=== PATIENT | female | born 1995 | race Two or more races ===

== ENCOUNTER 2025-02-09 11:53 | Outpatient (OUT) | payer OTHER, SELFPAY ==
--- OUTSIDE RECORDS SUMMARY | 2025-01-26 23:59 | XMS_ITS | Continuity of Care Document ---
Author Organization [facility] Address Unknown Care Team Providers Care Clinic Receptionist Name Role Phone Bozena Harvey Primary Care Physician Encounter [facility] [id number] Date(s): 01/26/25 - 01/26/[address] [address] Discharge Disposition: Home (Routine DC) Attending Physician: Dina Gagnon MD Admitting Physician: Dina Gagnon MD Referring Physician: Dina Gagnon MD Encounter Type: Outpatient Assessment and Plan Future Scheduled Tests Radiology* CT Maxillofacial w/o Contrast 01/26/25 Medications mupirocin Top 2% Oint 1 chandrika, Topical, TID, 15 gram, Refill(s) 0, [facility], 173, cm, 11/29/24 9:20:00 EDT, Height/Length Dosing, 61.3, kg, 11/29/24 9:20:00 EDT, Weight Dosing Start Date: 11/29/24 Status: Ordered Quantity: 15.0 Unit: g Repeat number: 1 Indications: Other specified disorders of nose and nasal sinuses; Other specified health status; Body mass index [BMI] 20.0-20.9, adult; Problem List Condition Confirmation Course Effective Dates Status Health St atus Informant BMI 20.0-20.9, adult Confirmed Active BMI < 18.5 Confirmed Active Nasal mass Confirmed Active Nonsmoker Confirmed Active Nostril sore Confirmed Active Procedures Procedure Date Related Diagnosis Body Site 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 Completed Jaw 2014 Completed Social History Social History Type Response Smoking Status Never (less than 100 in lifetime);Never; Concerns about tobacco use in household: No; Smoking Cessation Yes entered on: 01/12/25 Sex Female Sex Representation Female (finding) Patient Care team information Care Team Personnel Name: Bozena Bull Position: FT Ambulatory - Primary Care - CHANDRIKA Member Role: Primary Care Physician Address: [address] [place] [address]- Telecom: Care Team Related Persons Name: RAN TIJERINA Name: RAN TIJERINA Name: RAN TIJERINA Name: RAN TIJERINA Insurance Providers Guarantor name: Health Plan Information #: 1 Payer: NA Payer Identifier: [id number] Member Number: [id number] Group Number: [id number] Subscriber Identifier: [id number] Relationship to Subscriber: spouse Coverage Type: PRIVATE HEALTH INSURANCE Coverage Verification Date: 25 Telecom: NA Address:
--- OUTSIDE RECORDS SUMMARY | 2025-02-05 11:20 | XMS_ITS | Encounter Summary ---
Author Organization [facility] Address [address] [place] [address] Care Team Providers Care Industrial Engineering Technologist Name Role Phone Bozena Harvey NP Unavailable Sivakumar Fuller MD Primary Care Provider [phone] Reason for Visit * Reason Comments Nasal Mass Follow up [facility] Encounter Details Date Type Department Care Team (Late st Contact Info) Description 02/05/2025 11:20 AM EDT Office Visit [facility] [address] [facility] [address] [place] [address] Dina Gagnon MD 112 [facility] 130 [place] [address] Nasal mass (Primary Dx); Cystic lesion of [...] presents for Nasal Mass (Follow up CT [facility] 01/26/25) CT shows a 1.9x1.5x0.7cm RT ant [...] virus) Past Surgical History: Procedure Laterality Date [place] TMJ ARTHROSCOPY/SURGERY 2014 VAGINAL DELIVERY 05/13/2023 No Known Allergies Current Outpatient Medications on File Prior to Visit Medication Sig Dispense Refill Latqqwof-Gpl-Gm-FA ( 1 + IRON PO) [DISCONTINUED] amoxicillin-clavulanate [...] [facility] [address] [facility] [address] [place] [address] Dina Gagnon MD [address] [place] [address] documented as of this encounter Visit Diagnoses Diagnosis Nasal mass- Primary Cystic lesion of maxilla determined by X-ray documented in this encounter Care Teams Industrial Engineering Technologist Relationship Specialty Start Date End Date Sivakumar Fuller MD [address] [place] [address] PCP - General Family Medicine 01/05/25 Bozena Harvey NP [address] [place] [address] [phone] Referring Physician Family Medicine 01/05/25 documented as of this encounter
--- OUTSIDE RECORDS SUMMARY | 2025-02-08 11:15 | XMS_ITS | Encounter Summary ---
Author Organization [facility] Address [address] [place] [address] Care Team Providers Care Pipeline Executive Name Role Phone Bozena Harvey NP Unavailable Sivakumar Fuller MD Primary Care Provider [phone] Reason for Visit * Reason Comments Care [...] EDT Visit [facility] [address] [facility] [address] [place] [address] Shauna Nunez, [address] [facility] [address] [place] [address] care and examination ([facility]) Social History Tobacco Use Types Packs/Day [...] Review Audit Reviewed by No Workman MA (Installer Helper) on 02/08/25 at 1117 Medication Order Taking? Sig Documenting Provider Last Dose Status Discontinued 02/05/25 1112 Jfkzcqqp-Zxl-Ll-FA ( 1 + IRON PO) [id number] Historical Provider, Active Discontinued 02/05/25 1112 Past [...] orders for this visit: care and examination ([facility]) Breast and pelvic exam performed. Patient [...] as needed. ICD-10-CM 1. care and examination ([facility]) Z39.2 documented in this encounter Plan of Treatment Upcoming Encounters Date Type Department Care Team (Late st Contact Info) Description 02/27/2025 2:30 PM EDT Office Visit [facility] [address] [facility] [address] [place] [address] Dina Gagnon MD [address] [facility] 130 [place] [address] documented as of this encounter Visit Diagnoses Diagnosis care and examination ([facility]) documented in this encounter Care Teams Pipeline Executive Relationship Specialty Start Date End Date Sivakumar Fulelr MD [address] [place] [address] PCP - General Family Medicine 01/05/25 Bozena Harvey NP [address] [place] [address] Referring Physician Family Medicine 01/05/25 documented as of this encounter
--- OUTSIDE RECORDS SUMMARY | 2025-02-09 12:01 | XMS_ITS | Encounter Summary ---
Author Organization [facility] Address [address] [place] [address] Care Team Providers Care Outdoor Guide Name Role Phone Bozena Harvey NP Unavailable Sivakumar Fuller MD Primary Care Provider [phone] Encounter Details Date Type Department Care Team (Late Contact Info) Description 01/26/2025 Clinisync Result Encounter [facility] External Department Unsolicited Dina Gagnon MD 112 [facility] 130 [place], [place] [id number] Social History Tobacco Use Types Packs/Day Years [...] on file documented as of this encounter Plan of Treatment Upcoming Encounters Date Type Department Care Team (Late st Contact Info) Description 02/27/2025 2:30 PM EDT Office Visit [facility] 112 [facility] 130 [place] [address] Dina Gagnon MD 112 [facility] 130 [place], [place] [phone] documented as of this encounter Procedures Procedure Name Priority Date/Time Associated Diagnosis Comments CT MAXILLOFACIAL W/ CONTRAST 01/26/2025 4:54 PM EDT documented in this encounter Results * CT MAXILLOFACIAL W/ CONTRAST (01/26/2025 4:54 PM EDT) Anatomical Region Laterality Modality Other 01/26/2025 4:54 PM EDT Narrative 01/30/2025 11:06 AM EDT Exam Date/Time: 01/26/2025 17:23 EDT Reason for Exam: J34.89 Other specified disorders of nose and nasal sinuses Report IMPRESSION: 0.7 X 1.5 X 1.9 [address]ES MASS. CT MAXILLOFACIAL WITHOUT INTRAVENOUS CONTRAST MEDIUM. HISTORY: GROWTH ON RIGHT SIDE INSIDE NOSE, DOESN'T HURT TO TOUCH, CANT BREATHE OUT OF THE RT SIDE AT ALL,. TECHNICAL FACTORS: CT maxillofacial was obtained and formatted as 2 mm contiguous axial images. Sagittal and coronal reconstruction obtained during postprocessing. Comparison: . Findings: Bilateral frontal, ethmoid, sphenoid, and maxillary sinuses patent. Nasal septum midline. Ostiomeatal complexes patent bilaterally. Imaged portions mastoid air cells well pneumatized. Bilateral ocular globes, extraocular muscles, optic nerves, retrobulbar fat without anomaly. No fractures. No osteoblastic and no osteolytic lesions. Partially calcified 0.7 x 1. 5 x 1.9 cm mass visualized, right nares (series 3, image 39, series 5, image 97, series 7, image 42). All CT scans at this facility use dose modulation, iterative reconstruction, and/or weight based dosing when appropriate to reduce radiation dose to as low as reasonably achievable. Technical Comments: GFR (mL/min/1/73m2) na Contrast: Isovue 300 Contrast amount in ml's: 100.00 Report Ordering Provider: Dina Gagnon FINAL REPORT Dictated: 01/30/2025 11:03 am Bird Bergman MD Signed (Electronic Signature): 01/30/2025 11:03 am Signed by: Bird Bergman MD Transcribed by: TYLOR Technologist: MARTY Procedure Note Radiology, Radiologist, - 01/30/2025 Exam Date/Time: 01/26/2025 17:23 EDT Reason for Exam: J34.89 Other specified disorders of nose and nasal sinuses Report IMPRESSION: 0.7 X 1.5 X 1.9 [address]ES MASS. CT MAXILLOFACIAL WITHOUT INTRAVENOUS CONTRAST MEDIUM. HISTORY: GROWTH ON RIGHT SIDE INSIDE NOSE, DOESN'T HURT TO TOUCH, CANTBREATHE OUT OF THE RT SIDE AT ALL,. TECHNICAL FACTORS: CT maxillofacial was obtained and formatted as 2 mmcontiguous axial images. Sagittal and coronal reconstruction obtained duringpostprocessing. Comparison: . Findings: Bilateral frontal, ethmoid, sphenoid, and maxillary sinuses patent. Nasal septum midline. Ostiomeatal complexes patent bilaterally. Imaged portions mastoid air cells well pneumatized. Bilateral ocular globes, extraocular muscles, optic nerves, retrobulbarfat without anomaly. No fractures. No osteoblastic and no osteolytic lesions. Partially calcified 0.7 x 1. 5 x 1.9 cm mass visualized, right nares(series 3, image 39, series 5, image 97, series 7, image 42). All CT scans at this facility use dose modulation, iterativereconstruction, and/or weight based dosing when appropriate to reduce radiation dose to as low asreasonably achievable. Technical Comments: GFR (mL/min/1/73m2) na Contrast: Isovue 300 Contrast amount in ml's: 100.00 Report Ordering Provider: Dina Gagnon FINAL REPORT Dictated: 01/30/2025 11:03 am Bird Bergman MD Signed (Electronic Signature): 01/30/2025 11:03 am Signed by: Bird Bergman MD Transcribed by: DP Technologist: AGB Dina Gagnon MD [facility] Final Resul t documented in this encounter Visit Diagnoses Not on filedocumented in this encounter Care Teams Outdoor Guide Relationship Specialty Start Date End Date Sivakumar Fuller MD [address] [place] [address] PCP - General Family Medicine 01/05/25 Bozena Harvey NP [address] [place] [address] Referring Physician Family Medicine 01/05/25 documented as of this encounter
--- OUTSIDE RECORDS SUMMARY | 2025-02-09 12:01 | XMS_ITS | Encounter Summary ---
Author Organization [facility] Address [address] [place] [address] Care Team Providers Care Kier Operator Name Role Phone Bozena Harvey NP Unavailable Sivakumar Fuller MD Primary Care Provider Encounter Details Date Type Department Care Team (Late Contact Info) Description 05/18/2023 Orders Only [facility] [address] [place] [phone] Neetu Mathew, DO [address] [phone] Social History Tobacco Use Types Packs/Day Years Used Date Smoking Tobacco: Never Alcohol Use Standard Drinks/Week Comments Never 0 (1 standard drink = 0.6 oz pure alcohol) caffeine intake: 1-2 cups per day coffee Comments Yes Sex and Gender Information Value Date Recorded Sex Assigned at Not on file Legal Sex Female 6:40 PM EDT Gender Identity Not on file Sexual Orientation Not on file COVID-19 Exposure Response Date Recorded In the last 10 days, have yo u been in contact with someone who was confirmed or suspected to have Coronavirus/COVID-19? No / Unsure 04/27/2023 11:34 AM EDT documented as of this encounter Plan of Treatment Upcoming Encounters Date Type Department Care Team (Late st Contact Info) Description 02/27/2025 2:30 PM EDT Office Visit [facility] [address] [place] [phone] Dina Gagnon MD [address] [place] [address] documented as of this encounter Procedures Procedure Name Priority Date/Time Associated Diagnosis Comments URINE DRUG SCREEN W/CONFIRM ([facility] [place]) Routine 05/13/2023 10:51 AM EDT documented in this encounter Results * URINE DRUG SCREEN W/CONFIRM ([facility] [place]) (05/13/2023 10:51 AM EDT) Neetu Mathew DO LAB BLOOD ORDERABLES Final Result documented in this encounter Visit Diagnoses Not on filedocumented in this encounter Care Teams Kier Operator Relationship Specialty Start Date End Date Sivakumar Fuller MD [address] [place] [address] PCP - General Family Medicine 01/05/25 Bozena Harvey NP [address] [place] [address] Referring Physician Family Medicine 01/05/25 documented as of this encounter
--- OUTSIDE RECORDS SUMMARY | 2025-02-09 12:01 | XMS_ITS | Encounter Summary ---
Author Organization [facility] Address [address] [place] [address] Care Team Providers Care Soft Iron Inspector Name Role Phone Bozena Harvey CHEESE CUTTER Unavailable Sivakumar Fuller MD Primary Care Provider [phone] Encounter Details Date Type Department Care Team (Latest Contact Info) Description 02/05/2025 Travel Social History Tobacco Use Types Packs/Day Years [...] Upcoming Encounters Date Type Department Care Team ( st Contact Info) Description 02/27/2025 2:30 PM EDT Office Visit [facility] [address] [facility] [address] [place] [address] Dina Gagnon MD 112 [facility] [address] [place] [address] documented as of this encounter Visit Diagnoses Not on filedocumented in this encounter Care Teams Soft Iron Inspector Relationship Specialty Start Date End Date Sivakumar Fuller MD [address] [place] [address] PCP - General Family Medicine 01/05/25 Bozena Harvey NP [address] [place] [address] Referring Physician Family Medicine 01/05/25 documented as of this encounter
--- OUTSIDE RECORDS SUMMARY | 2025-02-09 12:01 | XMS_ITS | Encounter Summary ---
Author Organization [facility] Address [address] [place] [address] Care Team Providers Care Casino Worker Name Role Phone Bozena Harvey WOOD HEEL BACK LINER Unavailable Sivakumar Fuller MD Primary Care Provider [phone] Encounter Details Date Type Department Care Team (Latest Contact Info) Description 02/08/2025 Travel Social History Tobacco Use Types Packs/Day [...] EDT Office Visit [facility] [address] [facility] [address] [place] [address] Dina Gagnon MD 112 [facility] 130 [place] [address] documented as of this encounter Visit Diagnoses Not on filedocumented in this encounter Care Teams Casino Worker Relationship Specialty Start Date End Date Sivakumar Fuller MD [address] [place] [address] PCP - General Family Medicine 01/05/25 Bozena Harvey NP [address] [place] [address] Referring Physician Family Medicine 01/05/25 documented as of this encounter
--- OUTSIDE RECORDS SUMMARY | 2025-02-09 12:01 | XMS_ITS | Encounter Summary ---
Author Organization [facility] Address [address] [place] [address] Care Team Providers Care Weigher Bulker Name Role Phone Wes, Bozena ROAD PACKER OPERATOR Unavailable Sivakumar Fuller MD Primary Care Provider [phone] Encounter Details Date Type Department Care Team (Late Contact Info) Description 12/16/2022 Abstract [facility] [address] [facility] [address] [place] [phone] Shauna Nunez DO [address] [facility] [address] [place] [address] Social History Tobacco Use Types Packs/Day Years [...] [facility] [address] [place] [phone] Dina Gagnon MD [address] [place] [address] documented as of this encounter Visit Diagnoses Not on filedocumented in this encounter Care Teams Weigher Bulker Relationship Specialty Start Date End Date Sivakumar Fuller MD [address] [place] [phone] PCP - General Family Medicine 01/05/25 Bozena Harvey NP [address] [place], [place] [phone] Referring Physician Family Medicine 01/05/25 documented as of this encounter
--- OUTSIDE RECORDS SUMMARY | 2025-02-09 12:01 | XMS_ITS | Clinical Summary ---
Author Organization [facility] Address [address] [place] [address] Care Team Providers Care Welding Machine Operator Friction Name Role Phone Bozena Harvey CRATING AND MOVING ESTIMATOR Unavailable Sivakumar Fuller MD Primary Care Provider [phone] Allergies No known active allergies Medications Hbjyhzhv-Sfu-P e-FA ( 1 + IRON PO) Active amoxicillin-cl avulanate (Augmentin) 875-125 MG tablet Take 1 tablet by mouth every 12 (twelve) hours 01/13/20 25 025 Discontinued( erapy completed) SV Iron 325 (65 Fe) MG tablet Take 1 tablet by mouth Daily 12/30/19 25 025 Discontinued( erapy completed) predniSONE (Deltasone) 20 MG tabletIndicati ons:Nasal mass Take 1 tablet (20 mg) by mouth in the morning and 1 tablet (20 mg) before bedtime. Do all this for 6 days. 12 tablet 01/20/20 25 025 Discontinued predniSONE (Deltasone) 20 MG tabletIndicati ons:Nasal mass Take 1 tablet (20 mg) by mouth in the morning and 1 tablet (20 mg) before bedtime. Do all this for 6 days. 12 tablet 01/20/20 25 025 Active Problems Problem Noted Date Diagnosed Date Nasal mass 01/15/2025 BMI 20.0-20.9, adult 01/11/2025 Nonsmoker 01/11/2025 Normal labor ([facility]) 01/11/2025 Nostril sore 01/11/2025 Sebaceous cyst 11/01/2007 Encounters Date Type Department Care Team Description 02/08/2025 11:15 AM EDT Visit [facility] [address] [place] [address] Shauna Nunez DO care and examination ([facility]) 02/08/2025 Travel 02/05/2025 11:20 AM EDT Office Visit [facility] [address] [place] [address] Dina Gagnon MD Nasal mass (Primary Dx); Cystic lesion of maxilla determined by X-ray 02/05/2025 Bamboo flowsheet [facility] [address] [place] [address] Dina Gagnon MD 02/05/2025 Travel 01/26/2025 Clinisync Result Encounter [facility] External Department Unsolicited Dina Gagnon MD 01/19/2025 Telephone [facility] [address] [place] [address] Angella Rush LPN 01/19/2025 Telephone [facility] [address] [place] [address] Dina Gagnon MD [address] question 01/15/2025 9:20 AM EDT Office Visit [facility] [address] [place] [address] Dina Gagnon MD Nasal mass (Primary Dx); Chronic maxillary sinusitis 01/15/2025 Bamboo flowsheet [facility] [address] [place] [address] Dina Gagnon MD 01/15/2025 Travel 12/29/2024 External Result Encounter [facility] External Department Unsolicited Shauna Nunez, DO 12/29/2024 External Result Encounter [facility] External Department Unsolicited Shauna Nunez, DO 12/28/2024 External Result Encounter [facility] External Department Unsolicited Shauna Nunez, DO 12/28/2024 External Result Encounter [facility] External Department Unsolicited Shauna Nunez E, DO 12/28/2024 External Result Encounter [facility]OM[facility] External Department Unsolicited Shauna Nunez E, DO 12/28/2024 External Result Encounter [facility] External Department Unsolicited Robert Nunezeen E, DO 12/28/2024 External Result Encounter [facility]OM[facility] External Department Unsolicited Robert Nunezeen E, DO 12/28/2024 External Result Encounter [facility]OM[facility] External Department Unsolicited Shauna Nunez E, DO 12/26/2024 2:45 PM EDT Routine [facility] [address] [place] [address] Shauna Nunez, DO 38 weeks gestation of ([facility]) 12/26/2024 2:30 PM EDT Ancillary Procedure [facility] [address] [place] [address] related condition in third trimester ([facility]); Umbilical vein abnormality complicating , 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 ([facility]) 12/26/2024 Travel 12/19/2024 11:00 AM EDT Routine [facility] [address] [place] [address] Shauna Nunez, DO 37 weeks gestation of ([facility]) 12/19/2024 10:15 AM EDT Ancillary Procedure [facility] [address] [place] [address] related condition in third trimester ([facility]); Umbilical vein abnormality affecting , single or unspecified fetus ([facility]) 12/19/2024 Travel 12/12/2024 1:45 PM EDT Routine [facility] [address] [place] [address] Shauna Nunez, DO 36 weeks gestation of ([facility]) 12/12/2024 Bamboo flowsheet [facility] [address] [place] [address] Shauna Nunez, DO 12/12/2024 Travel 12/05/2024 11:15 AM EDT Routine [facility] [address] [place] [address] Shauna Nunez, DO 35 weeks gestation of ([facility]); screening for streptococcus B ([facility]) 12/05/2024 10:15 AM EDT Ancillary Procedure [facility] [address] [place] [address] related condition in third trimester ([facility]); complicated by umbilical cord varix, antepartum ([facility]) 12/05/2024 Travel 11/21/2024 10:00 AM EDT Routine [facility] [address] [place] [address] Shauna Nunez, DO 33 weeks gestation of ([facility]) 11/21/2024 Bamboo flowsheet [facility] [address] [place] [address] Shauna Nunez, DO 11/21/2024 Travel from Last 3 Months Family History Medical History Relation Name Comments No Known Problems Brother No Known Problems Daughter No Known Problems Father No Known Problems Maternal Grandfather Breast cancer Maternal Grandmother Kylie No Known Problems Mother No Known Problems Paternal Grandfather No Known Problems Paternal Grandmother No Known Problems Sister Relation Name Status Comments Brother Alive 1 brother Daughter x1 Father Alive Maternal Grandfather Alive Maternal Grandmother Kylie Mother Alive Paternal Grandfather Alive Paternal Grandmother Alive Sister Alive 1 sister Social History Tobacco Use Types Packs/Day Years Used Date Smoking Tobacco: Never Smokeless Tobacco: Never Tobacco Cessation:Counseling Given: Not Answered Alcohol Use Standard Drinks/Week Comments Never 0 (1 standard drink = 0.6 oz pure alcohol) caffeine intake: 1-2 cups per day coffee Comments No Sex and Gender Information Value Date Recorded Sex Assigned at Not on file Legal Sex Female 6:40 PM EDT Gender Identity Not on file Sexual Orientation Not on file Last Filed Vital Signs Vital Sign Reading Time Taken Comments Blood Pressure 106/64 02/08/2025 11:17 AM EDT Pulse 68 02/05/2025 11:11 AM EDT Temperature - - Respiratory Rate - - Oxygen Saturation - - Inhaled Oxygen Concentration - - Weight 50.8 kg (112 lb) 02/08/2025 11:17 AM EDT Height 172.7 cm (5' 8 ) 02/05/2025 11:11 AM EDT Body Mass Index 17.03 02/05/2025 11:11 AM EDT Plan of Treatment Upcoming Encounters Date Type Department Care Team (Late st Contact Info) Description 02/27/2025 2:30 PM EDT Office Visit [facility] [address] [facility] [address] [place] [address] Dina Gagnon MD [address] [facility] [address] [place] [address] Health Maintenance Due Date Last Done Comments Influenza Vaccine (#1) 2025 Procedures Procedure Name Priority Date/Time Associated Diagnosis Comments CT MAXILLOFACIAL W/ CONTRAST 01/26/2025 4:54 PM EDT CBC WITH AUTO DIFFERENTIAL STAT 12/29/2024 12:51 PM EDT CBC WITH AUTO DIFFERENTIAL Routine 12/29/2024 7:02 AM EDT RPR W/RFX TO QUANT & TP ABS ([facility]) STAT 12/28/2024 8:16 AM EDT CBC WITH AUTO DIFFERENTIAL STAT 12/28/2024 8:16 AM EDT TOXICOLOGY SCREEN, URINE Routine 12/28/2024 7:54 AM EDT OB URINE DRUG SCREEN (NO THC) Routine 12/28/2024 7:54 AM EDT URINALYSIS REFLEX STAT 12/28/2024 7:5 4 AM EDT CULTURE, URINE, ROUTINE STAT 12/28/2024 7:54 AM EDT US OB FOLLOW UP TRANSABDOMINAL APPROACH Routine 12/26/2024 3:23 PM EDT related condition in third trimester ([facility]) Umbilical vein abnormality complicating , 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 ([facility]) POCT URINALYSIS 4 DIPSTICK Routine 12/26/2024 3:16 PM EDT 38 weeks gestation of ([facility]) POCT URINALYSIS 4 DIPSTICK Routine 12/19/2024 10:53 AM EDT 37 weeks gestation of ([facility]) US BIOPHYSICAL PROFILE WO NON STRESS TESTING Routine 12/19/2024 10:48 AM EDT related condition in third trimester ([facility]) Umbilical vein abnormality affecting , single or unspecified fetus ([facility]) POCT URINALYSIS 4 DIPSTICK Routine 12/12/2024 1:52 PM EDT 36 weeks gestation of ([facility]) US OB FOLLOW UP TRANSABDOMINAL APPROACH Routine 12/05/2024 11:23 AM EDT related condition in third trimester ([facility]) complicated by umbilical cord varix, antepartum ([facility]) STREP B SCREEN Routine 12/05/2024 11:15 AM EDT screening for streptococcus B ([facility]) POCT URINALYSIS 4 DIPSTICK Routine 12/05/2024 11:10 AM EDT 35 weeks gestation of ([facility]) POCT URINALYSIS 4 DIPSTICK Routine 11/21/2024 10:10 AM EDT 33 weeks gestation of ([facility]) from Last 3 Months Results * CT MAXILLOFACIAL W/ CONTRAST (01/26/2025 [...] Bergman MD Transcribed by: TYLOR Technologist: MARTY us Dina Gagnon MD [facility] Final Resul t * (ABNORMAL) CBC auto differential (12/29/2024 12:51 PM EDT) Only the most recent of3 resultswithin the time period is included. WBC 12.7(H) 3.8 - 11.6 10*3/uL [facility] WH[facility]LO[facility] COUNT 12.7(H) 3.8 - 11.6 10*3/uL 12/29[facility] RBC 3.17(L) 3.60 - 5.00 10*6/uL 12/29[facility] HEMOGLOBIN 9.3(L) 11.8 - 15.4 g/dL 12/29/2024 [facility] HEMATOCRIT 28.3(L) 34.0 - 46.4 % 12/29/2024 1:00 PM EDT [facility] MCV 89.3 80 - 100 fL 12/29/2024 1:00 PM EDT [facility] MCH 29.5 24.7 - 34.3 pg 12/29/2024 1:00 PM EDT [facility] MCHC 33.0 32.0 - 35.0 g/dL 12/29/2024 1:00 PM EDT [facility] RED CELL DISTRIBUTION WIDTH, RDW 14.3 11.9 - 15.3 % 12/29/2024 1:00 PM EDT [facility] PLATELET COUNT 301 150 - 450 10*3/uL 12/29/2024 1:00 PM EDT [facility] MEAN PLATELET VOLUME, MPV 10.2 6.3 - 10.7 fL 12/29/2024 1:00 PM EDT [facility] NEUTROPHILS, % 69.3 . % 12/29/2024 1:00 PM EDT [facility] LYMPHOCYTES, % 22.7 . % 12/29/2024 1:00 PM EDT [facility] MONOCYTE/MACROPHA GE, % 6.3 . % 12/29/2024 1:00 PM EDT [facility] EOSINOPHILS, % 0.9 . % 12/29/2024 1:00 PM EDT [facility] BASOPHILS, % 0.8 . % 12/29/2024 1:00 PM EDT [facility] NRBC 0.1 0 - 0.5 /100{WBC} 12/29/2024 1:00 PM EDT [facility] NEUTROPHILS 8.8(H) 1.8 - 7.7 10*3/uL 12/29/2024 1:00 PM EDT [facility] LYMPHOCYTES 2.9 1.00 - 4.8 10*3/uL 12/29/2024 1:00 PM EDT [facility] MONOCYTES 0.8 0.0 - 0.8 10*3/uL 12/29/2024 1:00 PM EDT [facility] EOSINOPHILS 0.1 0.0 - 0.45 10*3/uL 12/29/2024 1:00 PM EDT [facility] BASOPHILS 0.1 0.0 - 0.2 10*3/uL 12/29/2024 1:00 PM EDT [facility] Blood (Blood) 12/29/2024 12: 51 PM EDT 12/29/2024 12:54 PM EDT Shauna Nunez DO LAB BLOOD ORDERABLES Final Result Performing Organization Address [facility] [place] [address], [place] [address] * RPR W/RFX TO QUANT & TP ABS ([facility]) (12/28/2024 8:16 AM EDT) RPR, RFX QUANT RPR Non Reactive Non Reactive 12/29/2024 4:07 AM EDT [facility] Comment: Performed at: - [facility] [id number] Stabber: Daren Lange PhD, Phone: [phone] Other Topography unknown / Unknown 12/28/2024 8:16 AM EDT 12/28/2024 8:26 AM EDT Shauna Nunez DO LAB BLOOD ORDERABLES Final Result Performing Organization Address City/[facility]/[place] [address], * OB URINE DRUG SCREEN (NO THC) (12/28/2024 7:54 AM EDT) AMPHETAMINE SCREEN,URINE Negative Negative 12/28/2024 8:37 AM EDT [facility] BARBITURATE SCREEN,URINE Negative Negative 12/28/2024 8:37 AM EDT [facility] BENZODIAZEPINES SCREEN,URINE Negative Negative 12/28/2024 8:37 AM EDT [facility] COCAINE SCREEN,URINE Negative Negative 12/28/2024 8:37 AM EDT [facility] OPIATE SCREEN,URINE Negative Negative 12/28 8:37 AM EDT [facility] PHENCYCLIDINE SCREEN, URINE Negative Negative 12/28/2024 8:37 AM EDT [facility] Comment: These are unconfirmed results and should not be used for legal purposes. Drug Cut-Off Concentration: AMPH 1000 ng/mL CAL 200 ng/mL TAMRA 200 ng/mL COCM 300 ng/mL OP 300 ng/mL PCP 25 ng/mL Other 12/28/2024 7:54 AM EDT 12/28/2024 8:06 AM EDT Shauna Nunez DO LAB BLOOD ORDERABLES Final Result Performing Organization Address City/State/[facility] Co de Phone Number [facility] [address] [place] [address], [facility] [address] [place] [address] * Toxicology screen, urine (12/28/2024 7:54 AM EDT) Pathologist [facility] AMPHETAMINE SCREEN,URINE Negative Negative 12/28/2024 11:00 AM EDT [facility] BARBITURATE SCREEN,URINE Negative Negative 12/28/2024 11:[facility] BENZODIAZEPINES SCREEN,URINE Negative Negative 12/28/2024 11:00 AM EDT [facility] COCAINE SCREEN,URINE Negative Negative 12/28/2024 11:00 AM EDT [facility] OPIATE SCREEN,URINE Negative Negative 12/28 11:00 AM EDT [facility] PHENCYCLIDINE SCREEN,URINE Negative Negative 12/28/2024 11:00 AM EDT [facility] CANNABINOID SCREEN,URINE Negative Negative 12/28/2024 11:00 AM EDT [facility] Comment: These are unconfirmed results and should not be used for legal purposes. Drug Cut-Off Concentration: AMPH 1000 ng/mL CAL 200 ng/mL TAMRA 200 ng/mL COCM 300 ng/mL OP 300 ng/mL PCP 25 ng/mL THC 20 ng/mL Other 12/28/2024 7:54 AM EDT 12/28/2024 10:43 AM EDT Narrative [facility] - 12/28/2024 11:00 AM EDT Comment acute impairment/frequent use of THC us Shauna Nunez DO LAB URINE ORDERABLES Final Result [facility] [address] [place] [address], [facility] [address] [place] [address] * (ABNORMAL) Urinalysis with reflex microscopic (12/28/2024 7:54 AM EDT) COLOR,URINE Light-Yellow Yellow 12/28/2024 8:[facility] APPEARANCE,URI NE Cloudy(AA) Clear 12/28/2024 8:20 AM [facility] SPECIFICY GRAVITY,URINE 1.010 1.001 - 1.030 12/28/2024 8:20 AM [facility] PH,URINE 7.5 5.0 - 9.0 12/28/2024 8:20 AM [facility] LEUKOCYTE ESTERASE,URINE 4+(H) Negative 12/28/2024 8:[facility] NITRITE,URINE Negative Negative 12/28/2024 8:[facility] PROTEIN,URINE Negative Negative 12/28/2024 8:20 AM [facility] GLUCOSE,URINE (UA) Normal Normal 12/28/2024 8:20 AM [facility] KETONES,URINE 2+(H) Negative 12/28/2024 8:20 AM [facility] UROBILINOGEN,U RINE Normal Normal 12/28/2024 8:20 [facility] BILIRUBIN,URIN E Negative Negative 12/28/2024 8:20 [facility] OCCULT BLOOD,URINE Negative Negative 12/28/2024 8:[facility] RBC,URINE 3-4 0 - 4 [HPF] 12/28/2024 8:31 AM [facility] WBC,URINE 10-19(H) 0 - 4 [HPF] 12/28/2024 8:31 AM [facility] WBC CLUMP, URINE Occasional(H ) None Seen 12/28/2024 8:31 [facility] SQUAMOUS EPITHELIAL CELL,URINE 20-49(H) 0 - 2 [HPF] 12/28/2024 8:31 AM EDT [facility] BACTERIA,URINE 3+(H) None Seen 12/28/2024 8:31 AM EDT [facility] HYALINE CASTS,URINE None 0 - 8 12/28/2024 8:31 AM EDT [facility] Other 12/28/2024 7:54 AM EDT 12/28/2024 8:06 AM EDT Narrative [facility] - 12/28/2024 8:31 AM EDT Comment c/o urinary symptoms or increased blood pressure Name Collection Type:: Clean-Voided Midstream us Shauna Nunez DO LAB URINE ORDERABLES Final Result Performing Organization Address [facility] Co de Phone Number [address] [address], [place] [id number] * Urine culture (12/28/2024 7:54 AM EDT) [facility] NOTE No Growth 2 Days 12/30/2024 9:38 AM EDT [facility] Urine Urine specimen obtained by clean catch procedure / Unknown 12/28/2024 7:54 AM EDT 12/28/2024 8:06 AM EDT Comment:Clean-Voided Midstre am Shauna Nunez DO LAB MICROBIOLOGY - GENERAL ORDERABLES Final Result Performing Organization Address City/[facility] Co de Phone Number [address] [address], [facility] [address] [place] [address] * US OB follow up transabdominal approach (12/26/2024 3:23 PM EDT) Only the most recent of2 resultswithin the time period is included. Anatomical Region Laterality Modality Body Ultrasound Study GA Study Date Study JAVED Working JAVED (Source) 12/26/2024 01/06/2025 (Ultrasound) Fetus A Measurements Value GA (days) Biparietal Diameter Head Circumference Abdominal Circumference Femur Length Ulna Length Humerus Length Tibia Length Amniotic Fluid Index Quadrant 1 Amniotic Fluid Index Quadrant 2 Amniotic Fluid Index Quadrant 3 Amniotic Fluid Index Quadrant 4 Amniotic Fluid Index Deep Vertical Pocket UA SD Ratio UA Resistance Index UA Pulsatility Index MCA SD Ratio MCA Resistance Index MCA Pulsatility Index Heart Rate TWIN DISCORDANCE CERVICAL W/FUNDAL PRESSURE CERVICAL W/ VALSALVA Narrative 01/03/2025 12:54 PM EDT There is a single intrauterine visualized. biometry is consistent with the established dates. Serial growth is within normal limits. The AC measures at the 36th%. The EFW is in the 48% . There is a mild intra-abdominal mild umbilical vein varix located near the anterior abdominal wall. the remainder of the anatomy visualized appears normal. The amniotic fluid index measures 13.2 cm. breathing and good motion are visualized. us Shauna Nunez DO IMG OB US PROCEDURES Final Result * POCT URINALYSIS 4 DIPSTICK (12/26/2024 3:16 PM EDT) Only the most recent of5 resultswithin the time period is included. Glucose, UA Negative Negative - 1999(110) ++++ mg/dL Protein, UA Negative Negative - 1999(20) ++++ mg/dL Urine 12/26/2024 3:16 PM EDT us Shauna Nunez DO POINT OF CARE TEST ENTER/ED IT ORDERABLES Final Result * US biophysical profile wo non stress testing (12/19/2024 10:48 AM EDT) Anatomical Region Laterality Modality Body Ultrasound Study GA Study Date Study JAVED Working JAVED (Source) 12/19/2024 01/06/2025 (Ultrasound) Fetus A Measurements Value GA (days) Biparietal Diameter Abdominal Circumference Femur Length Head Circumference Heart Rate Amniotic Fluid Index Deep Vertical Pocket UA Pulsatility Index UA Resistance Index UA SD Ratio MCA Pulsatility Index MCA Resistance Index MCA SD Ratio TWIN DISCORDANCE CERVICAL W/FUNDAL PRESSURE CERVICAL W/ VALSALVA Narrative 12/21/2024 11:31 AM EDT The ultrasound biophysical profile is 8/8. The amniotic fluid measures 12.9 cm. The intra-abdominal umbilical vein appears prominent, with the widest portion measuring 11.3 mm. us Shauna Nunez DO IMG OB US PROCEDURES Final Result * Strep B screen (12/05/2024 11:15 AM EDT) [facility] NOTE No Group B Beta Streptococcus Isolated 3 Days 12/08/2024 11:04 AM EDT [facility] Swab Vaginal swab / Unknown 12/05/2024 11:15 AM EDT 12/05/2024 3:47 PM EDT us Shauna Nunez DO LAB MICROBIOLOGY - GENERAL ORDERABLES Final Result Performing Organization Address City/[facility] de Phone Number [facility] [address] [place] [address], [facility] [address] [place] [address] from Last 3 Months Insurance [employer] Care Teams Welding Machine Operator Friction Relationship Specialty Start Date End Date Sivakumar Fuller MD [address] [place] [address] PCP - General Family Medicine 01/05/25 Bozena Harvey NP [address] [place] [address] Referring Physician Family Medicine 01/05/25
--- OUTSIDE RECORDS SUMMARY | 2025-02-09 12:01 | XMS_ITS | Encounter Summary ---
Author Organization [facility] Address [address] [facility] [place] [address] Care Team Providers Care Tearer Press Clipping Name Role Phone Bozena Harvey YARN SORTER Unavailable Sivakumar Fuller MD Primary Care Provider [phone] Encounter Details Date Type Department Care Team (Late Contact Info) Description 02/05/2025 Bamboo flowsheet [facility] [address] [facility] [address] [place] [phone] Dina Gagnon MD [address] [facility] [address] [place] [address] Social History Tobacco Use Types Packs/Day Years [...] Visit [facility] [address] [facility] [address] [place] [phone] Dina Gagnon MD [address] [facility] [address] [place] [address] documented as of this encounter Visit Diagnoses Not on filedocumented in this encounter Care Teams Tearer Press Clipping Relationship Specialty Start Date End Date Sivakumar Fuller MD [address] [place] [phone] PCP - General Family Medicine 01/05/25 Bozena Harvey NP [address] [place] [phone] Referring Physician Family Medicine 01/05/25 documented as of this encounter
[2025-02-09 12:59] LABS: Hematocrit 37.3 % (36.0-48.0); Hemoglobin 12.3 g/dL (12.0-16.0); Immature Granulocytes Abs Auto 0.03 10^3/uL (0.00-0.03); Immature Granulocytes Pct Auto 0.4 % (0.0-0.5); Lymphocytes Absolute Auto 2.9 10^3/uL (1.2-3.8); Mean Corpuscular HGB Conc 33.0 g/dL (29.9-35.2); Mean Corpuscular Hemoglobin 29.4 pg (26.7-34.0); Mean Corpuscular Volume 89.0 fL (81.0-99.0); Platelet Count 260 10^3/uL (150-450); Red Blood Count 4.19 10^6/uL (4.20-5.40); White Blood Count 7.9 10^3/uL (4.0-11.0)
== END 2025-02-09 11:54 | disposition home or self-care (01) ==
PROVIDERS: PCP Nurse Practitioner; Visit Provider Otolaryngology
DX: Z01.812 Encounter for preprocedural laboratory examination (principal)
CPT/HCPCS: 85025

== ENCOUNTER 2025-02-15 09:59 | Day surgery (SDC) | payer OTHER, SELFPAY ==
--- OUTSIDE RECORDS SUMMARY | 2025-02-05 11:20 | XMS_ITS | Encounter Summary ---
Author Organization [facility] Address [address] [place] [address] Care Team Providers Care Fish Fryer Name Role Phone Bozena Harvey NP Unavailable Sivakumar Fuller MD Primary Care Provider [phone] Reason for Visit * Reason Comments Nasal Mass Follow up [facility] Encounter Details Date Type Department Care Team (Late st Contact Info) Description 02/05/2025 11:20 AM EDT Office Visit [facility] [address] [facility] [address] [place] [address] Dina Gagnon MD 112 [facility] [address] [place] [address] Nasal mass (Primary Dx); Cystic lesion of maxilla determined by X-ray Social History Tobacco Use Types Packs/Day Years Used Date Smoking Tobacco: Never Smokeless Tobacco: Never Alcohol Use Standard Drinks/Week Comments Never 0 (1 standard drink = 0.6 oz pure alcohol) caffeine intake: 1-2 cups per day coffee Comments Yes Sex and Gender Information Value Date Recorded Sex Assigned at Not on file Legal Sex Female 6:40 PM EDT Gender Identity Not on file Sexual Orientation Not on file documented as of this encounter Last Filed Vital Signs Vital Sign Reading Time Taken Comments Blood Pressure 124/79 02/05/2025 11:11 AM EDT Pulse 68 02/05/2025 11:11 AM EDT Temperature - - Respiratory Rate - - Oxygen Saturation - - Inhaled Oxygen Concentration - - Weight 62.1 kg (137 lb) 02/05/2025 11:11 AM EDT Height 172.7 cm (5' 8 ) 02/05/2025 11:11 AM EDT Body Mass Index 20.83 02/05/2025 11:11 AM EDT documented in this encounter Progress Notes * Dina Gagnon MD - 02/05/2025 11:20 AM EDT Subjective Patient ID: Patt Stoner is a 29 y.o. female who presents for Nasal Mass (Follow up CT [facility] 01/26/25) CT shows a 1.9x1.5x0.7cm RT ant nasal mass. Entirely anterior to the IT. There is also a left maxillary apical abscess or cyst Review of Systems All other systems reviewed and are negative. Family History Problem Relation Name Age of Onset No Known Problems Mother No Known Problems Father No Known Problems Sister No Known Problems Brother No Known Problems Daughter Breast cancer Maternal Grandmother Kylie No Known Problems Maternal Grandfather No Known Problems Paternal Grandmother No Known Problems Paternal Grandfather Active Ambulatory Problems Diagnosis Date Noted BMI 20.0-20.9, adult 01/11/2025 Nonsmoker 01/11/2025 Normal labor ([facility]) 01/11/2025 Nostril sore 01/11/2025 Sebaceous cyst 11/01/2007 Nasal mass 01/15/2025 Resolved Ambulatory Problems Diagnosis Date Noted No Resolved Ambulatory Problems Past Medical History: Diagnosis Date Vaccine for VZV (varicella-zoster virus) Past Surgical History: Procedure Laterality Date [place] TMJ ARTHROSCOPY/SURGERY 2014 VAGINAL DELIVERY 05/13/2023 No Known Allergies Current Outpatient Medications on File Prior to Visit Medication Sig Dispense Refill Apbxnnpw-Rbf-Ep-FA ( 1 + IRON PO) [DISCONTINUED] amoxicillin-clavulanate (Augmentin) 875-125 MG tablet Take 1 tablet by mouth every 12 (twelve) hours [DISCONTINUED] SV Iron 325 (65 Fe) MG tablet Take 1 tablet by mouth Daily No current facility-administered medications on file prior to visit. Objective Last Recorded Vitals Vitals: 02/05/25 1111 BP: 124/79 Pulse: 68 ENT Physical Exam Nose Nose comments: Mass filling ant rt nasal cavity. Appears to originate from septum. Respiratory Inspection: breathing unlabored; normal breathing rate; Auscultation: breath sounds are clear; Cardiovascular Inspection: extremities are warm and well perfused; no peripheral edema present; Auscultation: regular rate and rhythm; Assessment/Plan Diagnoses and all orders for this visit: Nasal mass Cystic lesion of maxilla determined by X-ray Mass confined to RT and nasal cavity. Likely a pyogenic granuloma or capillary hemangioma. Proceed with removal of internal nasal mass under general anesthesia due to risk of bleeding. Pt advised she should get a copy of her CT to take to her dentist to review documented in this encounter Plan of Treatment Upcoming Encounters Date Type Department Care Team (Late st Contact Info) Description 02/27/2025 2:30 PM EDT Office Visit [facility] [address] [facility] [address] [place] [address] Dina Gagnno MD [address] [place] [address] documented as of this encounter Visit Diagnoses Diagnosis Nasal mass- Primary Cystic lesion of maxilla determined by X-ray documented in this encounter Care Teams Fish Fryer Relationship Specialty Start Date End Date Sivakumar Fuller MD [address] [place] [address] PCP - General Family Medicine 01/05/25 Bozena Harvey NP [address] [place] [address] [phone] Referring Physician Family Medicine 01/05/25 documented as of this encounter
--- OUTSIDE RECORDS SUMMARY | 2025-02-08 11:15 | XMS_ITS | Encounter Summary ---
Author Organization [facility] Address [address] [place] [address] Care Team Providers Care Mulling Machine Operator Name Role Phone Bozena Harvey NP Unavailable Sivakumar Fuller MD Primary Care Provider [phone] Reason for Visit * Reason Comments Care 12/28/24 . Pt hav ing on and off vaginal spotting. Denies bowel/bladder concerns. Pt is , going well. Pt would like to discuss control. Pt would like to discuss paragard. Denies intercourse. Denies PP depression. Encounter Details Date Type Department Care Team (Late st Contact Info) Description 02/08/2025 11:15 AM EDT Visit [facility] [address] [facility] [address] [place] [phone] Shauna Nunez, [address] [facility] [address] [place] [address] care and examination ([facility]) Social History Tobacco Use Types Packs/Day Years Used Date Smoking Tobacco: Never Smokeless Tobacco: Never Alcohol Use Standard Drinks/Week Comments Never 0 (1 standard drink = 0.6 oz pure alcohol) caffeine intake: 1-2 cups per day coffee Comments No Sex and Gender Information Value Date Recorded Sex Assigned at Not on file Legal Sex Female 6:40 PM EDT Gender Identity Not on file Sexual Orientation Not on file documented as of this encounter Last Filed Vital Signs Vital Sign Reading Time Taken Comments Blood Pressure 106/64 02/08/2025 11:17 AM EDT Pulse - - Temperature - - Respiratory Rate - - Oxygen Saturation - - Inhaled Oxygen Concentration - - Weight 50.8 kg (112 lb) 02/08/2025 11:17 AM EDT Height - - Body Mass Index 17.03 02/05/2025 11:11 AM EDT documented in this encounter Progress Notes * Shauna Nunez DO - 02/08/2025 11:15 AM EDT Images from the original note were not included. Shauna Nunez D.O. Obstetrics and Gynecology Patient: Patt Stoner : 1995 (29 y.o.) Exam Date: 02/08/2025 Reason for Visit - Chief Complaint Patient presents with Care 12/28/24 . Pt having on and off vaginal spotting. Denies bowel/bladder concerns. Pt is , going well. Pt would like to discuss control. Pt would like to discuss paragard. Denies intercourse. Denies PP depression. Visit Vitals BP 106/64 Wt 112 lb Unknown BMI 17.03 kg/m?? OB Status Recent Smoking Status Never BSA 1.56 m?? No Known Allergies History of Present Illness, Associated Treatments and Results - OB History Para Term AB Living 2 2 2 0 0 2 SAB IAB Ectopic Multiple Live Births 0 0 0 0 2 # Outcome Date GA Lbr Mark/2nd Weight Sex Type Anes PTL Lv 2 Term 12/28/24 38w5d 7 lb 6 oz M Vag-Spont EPI NIKI 1 Term 05/13/23 40w3d 6 lb 12 oz F Vag-Spont EPI Y NIKI Obstetric Comments Pap smear 06/20/24 wnl Review of Systems - Const: Denies appetite change, fever, chills. Allergy: Denies medication reaction. Ocular: Denies visual acuity change. ENT: Denies hearing change. Endoc: Denies weight loss. Resp: Denies dyspnoea, wheezing. Cardiac: Denies angina, palpitations. GI: Denies nausea, vomiting. Haem: Denies bleeding. : Denies incontinence. MSK: Denies arthralgias, joint oedema. Derm: Denies rash, hair loss. Neuro: Denies ataxia, tremor. Also see HPI for elements of ROS documented therein and for details of positive findings, which shall supersede the foregoing. Medication Documentation Review Audit Reviewed by No Workman MA (Experimental Psychologist) on 02/08/25 at 1117 Medication Order Taking? Sig Documenting Provider Last Dose Status Discontinued 02/05/25 1112 Ixicenni-Lar-Xy-FA ( 1 + IRON PO) [id number] Historical Provider, Active Discontinued 02/05/25 1112 Past Medical History: Diagnosis Date Vaccine for VZV (varicella-zoster virus) Past Surgical History: Procedure Laterality Date [place] TMJ ARTHROSCOPY/SURGERY 2014 VAGINAL DELIVERY 05/13/2023 VAGINAL DELIVERY 12/28/2024 Family History Problem Relation Name Age of Onset No Known Problems Mother No Known Problems Father No Known Problems Sister No Known Problems Brother No Known Problems Daughter Breast cancer Maternal Grandmother Kylie No Known Problems Maternal Grandfather No Known Problems Paternal Grandmother No Known Problems Paternal Grandfather Physical Exam - General appearance, mentation, extraocular movements, facial strength and movement, hearing, upper and lower extremity strength and tone, sensation to gross testing, coordination, and gait are normalor at baseline unless noted below. General: Alert, cooperative, no distress, appears stated age Head: Normocephalic, without obvious abnormality, atraumatic Eyes: sclera anicteric Ears: no obvious hearing deficit Skin: Warm and dry Breast: no masses palpable bilaterally, normal nipples bilaterally - everted - axilla negative - noskin changes Heart: Regular rate and rhythm, S1 and S2 normal, no murmur Lungs: Clear to auscultation bilaterally, respirations unlabored Abdomen: Soft, non-tender, no masses, no organomegaly Extremities normal, atraumatic, no cyanosis or edema FEMALE GENITOURINARY: normal vaginal mucosa, scant lochia, cervix absent of lesions, nontender, uterus AV, mobile, ovaries nonpalpable and non tender Diagnoses and all orders for this visit: care and examination ([facility]) Breast and pelvic exam performed. Patient may resume normal activities. Discussed contraceptive options at length with the patient- is wanting Paragard IUD. Will precert. Pt is stable . Findings of today's exam discussed with patient. Patient to contact the office if there are any changesin her gynecological conditions, she is to return for her annual exam or as needed. ICD-10-CM 1. care and examination ([facility]) Z39.2 documented in this encounter Plan of Treatment Upcoming Encounters Date Type Department Care Team (Late st Contact Info) Description 02/27/2025 2:30 PM EDT Office Visit [facility] [address] [facility] [address] [place] [address] Dina Gagnon MD [address] [facility] 130 [place] [address] documented as of this encounter Visit Diagnoses Diagnosis care and examination ([facility]) documented in this encounter Care Teams Mulling Machine Operator Relationship Specialty Start Date End Date Sivakumar Fuller MD [address] [place] [address] PCP - General Family Medicine 01/05/25 Bozena Harvey NP [address] [place] [address] Referring Physician Family Medicine 01/05/25 documented as of this encounter
[2025-02-09 12:40] VITALS: BP 114/77; PULSE 75; TEMP 36.4; O2SAT 98; BMI 17.5
[2025-02-15] VITALS (10 sets, daily range): BP systolic 107–128; BP diastolic 68–92; PULSE 72–105; TEMP 36.1; O2SAT 98–100
--- NOTE | 2025-02-15 | OP_ITS ---
OPERATION DATE: 02/15/2025 PRIMARY CARE PROVIDER: FER Tobias SURGEON: Dina Gagnon M.D. PREOPERATIVE DIAGNOSIS: Right internal nasal mass. POSTOPERATIVE DIAGNOSIS: Right internal nasal mass. PROCEDURE: Removal of right internal nasal mass. ANESTHESIA: General endotracheal. COMPLICATIONS: None. FINDINGS: A 2 cm violaceous mass of the left anterior nasal cavity. The mass was pedunculated and attached near the right anterior inferior septum. INDICATIONS: This 29-year-old woman developed a rapidly growing mass of the right anterior nasal cavity while . 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 PROCEDURE: Patient identified in the holding area and taken back to the OR where she was placed in supine position. After induction of general endotracheal anesthesia, the face was draped in a sterile fashion. Using a caudal speculum, the attachment of the mass to the anterior inferior septum was identified. Lidocaine 1% with 1:100,000 epinephrine was injected into the nasal septum, around the mass, as well as the stalk and mass itself. After waiting adequate time for hemostasis, the stalk of the mass was re-exposed and using a scissor was transected. The mass was removed with a forcep and the attachment point of the mass was cauterized with suction Bovie. The nose was then copiously irrigated. Antibiotic ointment was placed over the excision site, and the patient was awakened and taken to the recovery room in good condition. BENITA
--- OUTSIDE RECORDS SUMMARY | 2025-02-15 10:00 | XMS_ITS | Clinical Summary ---
Author Organization [facility] Address [address] [place] [address] Care Team Providers Care Cheese Maker Name Role Phone Bozena Harvey SUPERVISOR COMPONENT ASSEMBLER Unavailable Sivakumar Fuller MD Primary Care Provider [phone] Allergies No known active allergies Medications [id number] ( 1 + IRON PO) Active [...] 20.0-20.9, adult 01/11/2025 Nonsmoker 01/11/2025 Normal labor ([facility]) 01/11/2025 Nostril sore 01/11/2025 Sebaceous cyst 11/01/2007 Encounters Date Type Department Care Team Description 02/09/2025 Clinisync Result Encounter [facility] External Department Unsolicited Dina Gagnon MD 02/08/2025 11:15 AM EDT Visit [facility] [address] [place] [address] Shauna Nunez DO care and examination ([facility]) 02/08/2025 Travel 02/05/2025 11:20 AM EDT Office Visit [facility] [address] [place] [address] Dina Gagnon MD Nasal mass (Primary Dx); Cystic lesion of maxilla determined by X-ray 02/05/2025 Bamboo flowsheet [facility] [address] [place] [address] Dina Gagnon MD 02/05/2025 Travel 01/26/2025 Clinisync Result Encounter NOMS External Department Unsolicited Dina Gagnon MD 01/19/2025 Telephone [facility] OB [address] [place] [address] Angella Rush, FERNANDO 01/19/2025 Telephone [facility] [address] [place] [address] question 01/15/2025 9:20 AM EDT Office Visit [facility] [address] [place] [address] Dina Gagnon MD Nasal mass (Primary Dx); Chronic maxillary sinusitis 01/15/2025 Bamboo flowsheet [facility] [address] [place] [address] Dina Gagnon MD 01/15/2025 Travel 12/29/2024 External Result Encounter NOMS External Department Unsolicited Shauna Nunez, 12/29/2024 External Result Encounter NOMS External Department [...] External Department Unsolicited Robert Nunezeen E, DO 12/26/2024 2:45 PM EDT Routine [facility] OB [address] [place] [address] Shauna Nunez, DO 38 weeks gestation of ([facility]) 12/26/2024 2:30 PM EDT Ancillary Procedure [facility] OB [address] [place] [address] related condition in third trimester (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 OB [address] [place] [address] Shauna Nunez, DO 37 weeks gestation of ([facility]) 12/19/2024 10:15 AM EDT Ancillary Procedure [facility] OB [address] [place] [address] related condition in third trimester ([facility]); Umbilical vein abnormality affecting , single or unspecified fetus ([facility]) 12/19/2024 Travel 12/12/2024 1:45 PM EDT Routine [facility] OB [address] [place] [address] Shauna Nunez, DO 36 weeks gestation of ([facility]) 12/12/2024 Bamboo flowsheet [facility] OB [address] [place] [address] Shauna Nunez, 12/12/2024 Travel 12/05/2024 11:15 AM EDT Routine [facility] OB [address] [place] [address] Shauna Nunez, DO 35 weeks gestation of ([facility]); screening for streptococcus B ([facility]) 12/05/2024 10:15 AM EDT Ancillary Procedure [facility] OB [address] [place] [address] related condition in third trimester ([facility]); complicated by umbilical cord varix, antepartum ([facility]) 12/05/2024 Travel 11/21/2024 10:00 AM EDT Routine [facility] OB [address] [place] [address] Shauna Nunez, DO 33 weeks gestation of ([facility]) 11/21/2024 Bamboo flowsheet [facility] OB [address] [place] [address] Shauna Nunez, DO 11/21/2024 Travel from Last [...] EDT Office Visit [facility] [address] [facility] 130 [place] [address] Dina Gagnon MD [address] [facility] [address] [place] [address] Health Maintenance Due Date Last Done Comments Influenza Vaccine (#1) 2025 Procedures Procedure Name Priority Date/Time Associated Diagnosis Comments ALL CBC WITH AUTO DIFF Routine 12:[address] MAXILLOFACIAL W/ CONTRAST 01/26/2025 4:54 PM EDT CBC WITH AUTO DIFFERENTIAL STAT 12/29/2024 12:51 PM EDT CBC WITH AUTO DIFFERENTIAL Routine 12/29/2024 7:02 AM EDT RPR W/RFX TO QUANT & TP ABS ([facility]) STAT 12/28/2024 8:16 AM EDT CBC WITH [...] PM EDT related condition in third trimester ([facility]) Umbilical vein abnormality complicating , 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 ([facility]) POCT URINALYSIS 4 DIPSTICK Routine 12/26/2024 3:16 PM EDT 38 weeks gestation of ([facility]) POCT URINALYSIS 4 DIPSTICK Routine 12/19/2024 10:53 AM EDT 37 weeks gestation of ([facility]) US BIOPHYSICAL PROFILE WO NON STRESS TESTING Routine 12/19/2024 10:48 AM EDT related condition in third trimester ([facility]) Umbilical vein abnormality affecting , single or unspecified fetus ([facility]) POCT URINALYSIS 4 DIPSTICK Routine 12/12/2024 1:52 PM EDT 36 weeks gestation of ([facility]) US OB FOLLOW UP TRANSABDOMINAL APPROACH Routine 12/05/2024 11:23 AM EDT related condition in third trimester ([facility]) complicated by umbilical cord varix, antepartum ([facility]) STREP B SCREEN Routine 12/05/2024 11:15 AM EDT screening for streptococcus B ([facility]) POCT URINALYSIS 4 DIPSTICK Routine 12/05/2024 11:10 AM EDT 35 weeks gestation of ([facility]) POCT URINALYSIS 4 DIPSTICK Routine 11/21/2024 10:10 AM EDT 33 weeks gestation of ([facility]) from Last 3 Months Results * (ABNORMAL) ALL CBC WITH AUTO DIFF (02/09/2025 12:40 PM EDT) [facility] TB WBC 7.9 4.0 - 11.0 10 3/uL TBH TBH RBC 4.19(L) 4.20 - 5.40 10 6/uL TBH TBH HGB 12.3 12.0 - 16.0 g/dL TBH TBH HCT 37.3 36.0 - 48.0 % TBH TBH MCV 89.0 81.0 - 99.0 fL TBH TBH MCH 29.4 26.7 - 34.0 pg TBH TBH MCHC 33.0 29.9 - 35.2 g/dL TBH TBH RDW 15.9(H) 11.0 - 15.0 % TBH TBH PLT 260 150 - 450 10 3/uL TBH TBH MPV 10.7 9.5 - 13.5 fL TBH NEUTROPHILS PERCENT AUTO 53.9 43.0 - 75.0 % TBH LYMPHOCYTES PERCENT AUTO 36.4 20.5 - 60.0 % TBH MONOCYTES PERCENT AUTO 6.4 1.7 - 12.0 % TBH TBH EO % 2.5 0.9 - 7.0 % TBH BASOPHILS PERCENT AUTO 0.4 0.2 - 2.0 % TBH IMMATURE GRANULOCYTES PCT AUTO 0.4 0.0 - 0.5 % TBH NEUTROPHILS ABSOLUTE AUTO 4.3 1.4 - 6.5 10 3/uL TBH LYMPHOCYTES ABSOLUTE AUTO 2.9 1.2 - 3.8 10 3/uL TBH MONOCYTES ABSOLUTE AUTO 0.5 0.3 - 0.8 10 3/uL TBH TBH EO # 0.2 0.0 - 0.7 10 3/uL TBH BASOPHILS ABSOLUTE AUTO 0.0 0.0 - 0.1 10 3/uL TBH IMMATURE GRANULOCYTES ABS AUTO 0.03 0.00 - 0.03 10 3/uL TBH 02/09/2025 12:4 0 PM EDT 02/09/2025 12:41 PM EDT Narrative [facility] - 02/09/2025 1:24 PM EDT us Dina Gagnon MD [facility] Final Result [facility] TBH * CT MAXILLOFACIAL W/ CONTRAST (01/26/2025 4:54 [...] 3.8 - 11.6 10*3/uL 12/29/2024 1:00 PM EDT [facility] UNCORRECTED WHITE BLOOD COUNT 12.7(H) 3.8 - 11.6 10*3/uL 12/29/2024 1:00 PM EDT [facility] RBC 3.17(L) 3.60 - 5.00 10*6/uL 12/29/2024 1:00 PM EDT [facility] HEMOGLOBIN 9.3(L) 11.8 - 15.4 g/dL 12/29/2024 1:00 PM EDT [facility] HEMATOCRIT 28.3(L) 34.0 - 46.4 % 12/29/2024 1:00 PM EDT [facility] MCV 89.3 80 - 100 fL 12/29/2024 1:00 PM EDT [facility] MCH 29.5 24.7 - 34.3 pg 12/29/2024 1:00 PM EDT [facility] MCHC 33.0 32.0 - 35.0 g/dL 12/29/2024 1:00 PM EDT [facility] RED CELL DISTRIBUTION WIDTH, RDW 14.3 11.9 - 15.3 % 12/29/2024 1:00 PM EDT [facility] PLATELET COUNT 301 150 - 450 10*3/uL 12/29/2024 1:00 PM EDT [facility] MEAN PLATELET VOLUME, MPV 10.2 6.3 - 10.7 fL 12/29/2024 1:00 PM EDT [facility] NEUTROPHILS, % 69.3 . % 12/29/2024 1:00 PM EDT [facility] LYMPHOCYTES, % 22.7 . % 12/29/2024 1:00 PM EDT [facility] MONOCYTE/MACROPHA GE, % 6.3 . % 12/29/2024 1:00 PM EDT [facility] EOSINOPHILS, % 0.9 . % 12/29/2024 1:00 PM EDT [facility] BASOPHILS, % 0.8 . % 12/29/2024 1:00 PM EDT [facility] NRBC 0.1 0 - 0.5 /100{WBC} 12/29/2024 1:00 PM EDT [facility] NEUTROPHILS 8.8(H) 1.8 - 7.7 10*3/uL 12/29/2024 1:00 PM EDT [facility] LYMPHOCYTES 2.9 1.00 - 4.8 10*3/uL 12/29/2024 1:00 PM EDT [facility] MONOCYTES 0.8 0.0 - 0.8 10*3/uL 12/29/2024 1:00 PM EDT [facility] EOSINOPHILS 0.1 0.0 - 0.45 10*3/uL 12/29/2024 1:00 PM EDT [facility] BASOPHILS 0.1 0.0 - 0.2 10*3/uL 12/29/2024 1:00 PM EDT [facility] Blood (Blood) 12/29/2024 12: 51 PM EDT 12/29/2024 12:54 PM EDT Shauna Nunez DO LAB BLOOD ORDERABLES Final Result Performing Organization Address [facility] [place] [address], [place] [address] * RPR W/RFX TO QUANT & TP ABS ([facility]) (12/28/2024 8:16 AM EDT) RPR, RFX QUANT RPR Non Reactive Non Reactive 12/29/2024 4:07 AM EDT [facility] Comment: Performed at: - Lab[address] [id number] Smoke Control Supervisor: Daren Lange PhD, Phone: [phone] Other Topography unknown / Unknown 12/28/2024 8:16 AM EDT 12/28/2024 8:26 AM EDT us Shauna Nunez DO LAB BLOOD ORDERABLES Final Result Performing Organization Address City/[facility]/[place] [address], * OB URINE DRUG SCREEN (NO THC) (12/28/2024 7:54 AM EDT) AMPHETAMINE SCREEN,URINE Negative Negative 12/28/2024 8:37 AM EDT [facility] BARBITURATE SCREEN,URINE Negative Negative 12/28/2024 8:37 AM EDT [facility] BENZODIAZEPINES SCREEN,URINE Negative Negative 12/28/2024 8:37 AM EDT [facility] COCAINE SCREEN,URINE Negative Negative 12/28/2024 8:37 AM EDT [facility] OPIATE SCREEN,URINE Negative Negative 12/28 8:37 AM EDT [facility] PHENCYCLIDINE SCREEN, URINE Negative Negative 12/28/2024 8:37 AM EDT [facility] Comment: These are unconfirmed results and should not be used for legal purposes. Drug Cut-Off Concentration: AMPH 1000 ng/mL CAL 200 ng/mL TAMRA 200 ng/mL COCM 300 ng/mL OP 300 ng/mL PCP 25 ng/mL Other 12/28/2024 7:54 AM EDT 12/28/2024 8:06 AM EDT Shauna Nunez DO LAB BLOOD ORDERABLES Final Result Performing Organization Address [facility]/State/[facility] de Phone Number [facility] [address] [phone], [facility] [address] [phone] * Toxicology screen, urine (12/28/2024 7:54 AM EDT) AMPHETAMINE SCREEN,URINE Negative Negative 12/28/2024 11:00 AM [facility] BARBITURATE SCREEN,URINE Negative Negative 12/28/2024 11:00 AM [facility] BENZODIAZEPINES SCREEN,URINE Negative Negative 12/28/2024 [facility] Negative Negative 12/28/2024 11:[facility] OPIATE [facility]EN,URINE Negative Negative 12/28 11:[facility] PHENCYCLIDINE S[facility]EN,URINE Negative Negative 12/28/2024 11:[facility] CANNABINOID SCREEN,URINE Negative Negative 12/28/2024 11:00 [facility] Comment: These are unconfirmed results and should not be used for legal purposes. Drug Cut-Off Concentration: AMPH 1000 ng/mL CAL 200 ng/mL TAMRA 200 ng/mL COCM 300 ng/mL OP 300 ng/mL PCP 25 ng/mL THC 20 ng/mL Other 12/28/2024 7:54 AM EDT 12/28/2024 10:43 AM EDT Narrative [facility] - 12/28/2024 11:00 AM EDT Comment acute impairment/frequent use of THC us Shauna Nunez DO LAB URINE ORDERABLES Final Result Performing Organization Address City/State/[facility] Co de Phone Number [facility] [address] [phone], [facility] [address] [phone] * (ABNORMAL) Urinalysis with reflex microscopic (12/28/2024 7:54 AM EDT) COLOR,URINE Light-Yellow Yellow 12/28/2024 8:20 AM [facility] APPEARANCE,URI NE Cloudy(AA) Clear 12/28/2024 8:20 AM [facility] SPECIFICY GRAVITY,URINE 1.010 1.001 - 1.030 12/28/2024 8:20 AM [facility] PH,URINE 7.5 5.0 - 9.0 12/28/2024 8:20 AM [facility] LEUKOCYTE ESTERASE,URINE 4+(H) Negative 12/28/2024 8:20 AM [facility] NITRITE,URINE Negative Negative 12/28/2024 8:20 AM [facility] PROTEIN,URINE Negative Negative 12/28/2024 8:20 AM [facility] GLUCOSE,URINE (UA) Normal Normal 12/28/2024 8:20 AM [facility] KETONES,URINE 2+(H) Negative 12/28/2024 8:20 AM [facility] UROBILINOGEN,U RINE Normal Normal 12/28/2024 8:20 AM [facility] BILIRUBIN,URIN E Negative Negative 12/28/2024 8:20 AM [facility] OCCULT BLOOD,URINE Negative Negative 12/28/2024 8:20 AM [facility] RBC,URINE 3-4 0 - 4 [HPF] 12/28/2024 8:31 AM EDT [facility] WBC,URINE 10-19(H) 0 - 4 [HPF] 12/28/2024 8:31 AM EDT [facility] WBC CLUMP, URINE Occasional(H ) None Seen 12/28/2024 8:31 AM EDT [facility] SQUAMOUS EPITHELIAL CELL,URINE 20-49(H) 0 - 2 [HPF] 12/28/2024 8:31 AM EDT [facility] BACTERIA,URINE 3+(H) None Seen 12/28/2024 8:31 AM EDT [facility] HYALINE CASTS,URINE None 0 - 8 12/28/2024 8:31 AM EDT [facility] Other 12/28/2024 7:54 AM EDT 12/28/2024 8:06 AM EDT Narrative [facility] - 12/28/2024 8:31 AM EDT Comment c/o urinary symptoms or increased blood pressure Name Collection Type:: Clean-Voided Midstream us Shauna Nunez DO LAB URINE ORDERABLES Final Result Performing Organization Address City/[facility]/ZIP Co de Phone Number [facility] [address] [place] [address], [facility] [address] [place] [address] * Urine culture (12/28/2024 7:54 AM EDT) [facility] NOTE No Growth 2 Days 12/30/2024 9:38 AM EDT [facility] Urine Urine specimen obtained by clean catch procedure / Unknown 12/28/2024 7:54 AM EDT 12/28/2024 8:06 AM EDT Comment:Clean-Voided Midstre am Shauna Nunez DO LAB MICROBIOLOGY - GENERAL ORDERABLES Final Result Performing Organization Address City/[facility]/ZIP Co de Phone Number [facility] [address] [place] [address], [facility] [address] [place] [address] * US OB follow up transabdominal approach [...] Strep B screen (12/05/2024 11:15 AM EDT) Pathologist [facility] NOTE No Group B Beta Streptococcus Isolated 3 Days 12/08/2024 11:04 AM EDT [facility] Swab Vaginal swab / Unknown 12/05/2024 11:15 AM EDT 12/05/2024 3:47 PM EDT us Shauna Nunez DO LAB MICROBIOLOGY - GENERAL ORDERABLES Final Result Performing Organization Address City/State/[facility] Co de Phone Number [facility] [address] [phone], [facility] [address] [place] [address] from Last 3 Months Insurance [employer] Care Teams Cheese Maker Relationship Specialty Start Date End Date Sivakumar Fuller MD [address] [place] [phone] PCP - General Family Medicine 01/05/25 Bozena Harvey NP [address] [place] [address] Referring Physician Family Medicine 01/05/25
--- OUTSIDE RECORDS SUMMARY | 2025-02-15 10:00 | XMS_ITS | Encounter Summary ---
Author Organization [facility] Address [address] [facility] [place] [address] Care Team Providers Care Industrial Hygiene Manager Name Role Phone Bozena Harvey DIESEL RETROFIT DESIGNER Unavailable Sivakumar Fuller MD Primary Care Provider [phone] Encounter Details Date Type Department Care Team (Late Contact Info) Description 02/05/2025 Bamboo flowsheet [facility] [address] [facility] [address] [place] [address] Dina Gagnon MD [address] [facility] [address] [place] [address] Social History Tobacco Use Types Packs/Day Years [...] Visit [facility] [address] [facility] [address] [place] [address] Dina Gagnon MD [address] [facility] [address] [place] [address] documented as of this encounter Visit Diagnoses Not on filedocumented in this encounter Care Teams Industrial Hygiene Manager Relationship Specialty Start Date End Date Sivakumar Fuller MD [address] [place] [phone] PCP - General Family Medicine 01/05/25 Bozena Harvey NP [address] [place] [address] [phone] Referring Physician Family Medicine 01/05/25 documented as of this encounter
--- OUTSIDE RECORDS SUMMARY | 2025-02-15 10:00 | XMS_ITS | Encounter Summary ---
Author Organization [facility] Address [address] [facility] [place] [address] Care Team Providers Care Manager Clinical Services Name Role Phone Bozena Harvey NP Unavailable Sivakumar Fuller MD Primary Care Provider [phone] Encounter Details Date Type Department Care Team (Late Contact Info) Description 05/18/2023 Orders Only [facility] [address] [place] [address] Neetu Mathew, DO [address] [phone] Social History Tobacco Use Types Packs/Day Years [...] [facility] [address] [place] [address] Dina Gagnon MD [address] [place] [address] documented as of this encounter Procedures Procedure Name Priority Date/Time Associated Diagnosis Comments URINE DRUG SCREEN W/CONFIRM ([facility] Routine 05/13/2023 10:51 AM EDT documented in this encounter Results * URINE DRUG SCREEN W/CONFIRM ([facility]) (05/13/2023 10:51 AM EDT) Neetu Mathew DO LAB BLOOD ORDERABLES Final Result documented in this encounter Visit Diagnoses Not on filedocumented in this encounter Care Teams Manager Clinical Services Relationship Specialty Start Date End Date Sivakumar Fuller MD [address] [place] [phone] PCP - General Family Medicine 01/05/25 Bozena Harvey NP [address] [place] [phone] Referring Physician Family Medicine 01/05/25 documented as of this encounter
--- OUTSIDE RECORDS SUMMARY | 2025-02-15 10:00 | XMS_ITS | Encounter Summary ---
Author Organization [facility] Address [address] [place] [address] Care Team Providers Care Furniture Designer Name Role Phone Wes, Bozena VISION IMPAIRED TEACHER Unavailable Sivakumar Fuller MD Primary Care Provider [phone] Encounter Details Date Type Department Care Team (Late Contact Info) Description 12/16/2022 Abstract [facility] [address] [facility] [address] [place] [address] Shauna Nunez DO [address] [facility] [address] [place] [address] Social History Tobacco Use Types Packs/Day Years [...] [facility] [address] [place] [address] Dina Gagnon MD [address] [place] [address] documented as of this encounter Visit Diagnoses Not on filedocumented in this encounter Care Teams Furniture Designer Relationship Specialty Start Date End Date Sivakumar Fuller MD [address] [place] [phone] PCP - General Family Medicine 01/05/25 Bozena Harvey NP [address] [place], [place] [phone] Referring Physician Family Medicine 01/05/25 documented as of this encounter
--- OUTSIDE RECORDS SUMMARY | 2025-02-15 10:00 | XMS_ITS | Encounter Summary ---
Author Organization [facility] Address [address] [place] [address] Care Team Providers Care Independent Crop Consultant Name Role Phone Bozena Harvey NP Unavailable Sivakumar Fuller MD Primary Care Provider [phone] Encounter Details Date Type Department Care Team (Late Contact Info) Description 02/09/2025 Clinisync Result Encounter [facility] External Department Unsolicited Dina Gagnon MD 112 [facility] [address] [place] [address] Social History Tobacco Use Types Packs/Day Years [...] EDT Office Visit [facility] 112 [facility] [address] [place] [id number] Dina Gagnon MD 112 [facility] [address] [place] [address] documented as of this encounter Procedures Procedure Name Priority Date/Time Associated Diagnosis Comments ALL CBC WITH AUTO DIFF Routine 02/09/2025 12:40 PM EDT documented in this encounter Results * (ABNORMAL) ALL CBC WITH AUTO DIFF (02/09/2025 12:40 PM EDT) [facility] TB WBC 7.9 4.0 - 11.0 10 [...] Narrative [facility] - 02/09/2025 1:24 PM EDT Dina Gagnon MD [facility] Final Result [facility] documented in this encounter Visit Diagnoses Not on filedocumented in this encounter Care Teams Independent Crop Consultant Relationship Specialty Start Date End Date Sivakumar Fuller MD [address] [place] [address] [id number] PCP - General Family Medicine 01/05/25 Bozena Harvey NP [address] [place] [phone] Referring Physician Family Medicine 01/05/25 documented as of this encounter
--- OUTSIDE RECORDS SUMMARY | 2025-02-15 10:00 | XMS_ITS | Encounter Summary ---
Author Organization [facility] Address [address] [place] [address] Care Team Providers Care Senior Sales Associate Name Role Phone Bozena Harvye FASHION CONSULTANT SELLING Unavailable Sivakumar Fuller MD Primary Care Provider [phone] Encounter Details Date Type Department Care Team [...] EDT Office Visit [facility] 112 [facility] [address] [place] [address] Dina Gagnon MD 112 [facility] 130 [place] [address] documented as of this encounter Visit Diagnoses Not on filedocumented in this encounter Care Teams Senior Sales Associate Relationship Specialty Start Date End Date Sivakumar Fuller MD [address] [place] [id number] PCP - General Family Medicine 01/05/25 Bozena Harvey NP [address] [place] [address] Referring Physician Family Medicine 01/05/25 documented as of this encounter
--- OUTSIDE RECORDS SUMMARY | 2025-02-15 10:00 | XMS_ITS | Encounter Summary ---
Author Organization [facility] Address [address] [place] [address] Care Team Providers Care Traffic Supervisor Name Role Phone Bozena Harvey NP Unavailable Sivakumar Fuller MD Primary Care Provider [phone] Encounter Details Date Type Department Care Team (Late Contact Info) Description 05/18/2023 Abstract [facility] [address] [facility] [address] [place] [phone] Shauna Nunez DO [address] [facility] [address] [place] [address] Social History Tobacco Use Types Packs/Day Years [...] Visit [facility] [address] [facility] [address] [place] [address] Dina Gagnon MD [address] [place] [address] documented as of this encounter Visit Diagnoses Not on filedocumented in this encounter Care Teams Traffic Supervisor Relationship Specialty Start Date End Date Sivakumar Fuller MD [address] [place] [id number] PCP - General Family Medicine 01/05/25 Bozena Harvey NP [address] [place] [id number] Referring Physician Family Medicine 01/05/25 documented as of this encounter
--- OUTSIDE RECORDS SUMMARY | 2025-02-15 10:00 | XMS_ITS | Encounter Summary ---
Author Organization [facility] Address [address] [place] [address] Care Team Providers Care Pre Sales Network Engineer Name Role Phone Bozena Harvey OPTOMETRIC AIDE Unavailable Sivakumar Fuller MD Primary Care Provider [phone] Encounter Details Date Type Department Care Team [...] EDT Office Visit [facility] 112 [facility] 130 [place] [address] Dina Gagnon MD 112 [facility] 130 [place] [address] documented as of this encounter Visit Diagnoses Not on filedocumented in this encounter Care Teams Pre Sales Network Engineer Relationship Specialty Start Date End Date Sivakumar Fuller MD [address] [place] [id number] PCP - General Family Medicine 01/05/25 Bozena Harvey NP [address] [place] [address] Referring Physician Family Medicine 01/05/25 documented as of this encounter
[2025-02-15] MEDS: BACITRACIN OINTMENT 28.4 GM TUBE 1 APPLIC TOPICAL (11:03)
[2025-02-15] MEDS: LIDOCAINE HCL 1%-EPINEPHRINE 1:100,000 20 ML MDV INJ (11:07)
--- NOTE | 2025-02-15 11:34 | PC.NURSE ---
No drainage from nares. Patient voices it feels so good to be able to breath normal from my nose .
== END 2025-02-15 12:30 | disposition home or self-care (01) ==
LOC: SURGOUT 09:59
PROVIDERS: Anesthesiology; PCP Nurse Practitioner; Visit Provider Otolaryngology
PROC: (CPT 160; principal; 2025-02-15 11:00)
DX: L98.0 Pyogenic granuloma (principal)
CPT/HCPCS: 30117; 36415; 84703; 88305; J1100; J2250; J2405; J2704; J3010